=== PATIENT | female | born 1995 | race Caucasian/White ===

== ENCOUNTER 2021-12-01 10:49 | Emergency (ER) | payer OTHER ==
[~2021-12-01] VITALS: Ht 154.9 cm; Wt 55.8 kg
[2021-12-01 10:54] VITALS: BP 117/62
--- NOTE | 2021-12-01 10:59 | NUR ---
pt ambulated to bed 9
--- NOTE | 2021-12-01 11:36 | NUR ---
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 BLEEDING CONTROLLED 6/10 PAIN. PER PT UTD WTH RABIES, UNKNOWN LAST TDAP NKA PMH: ALOPECIA
--- NOTE | 2021-12-01 11:40 | NUR ---
PT AMBULATED TO BATHROOM
[2021-12-01] MEDS ORDERED: LIDOCAINE MPF 1% 10 MG/ML VIAL INJ ONE (11:55)
--- NOTE | 2021-12-01 12:10 | NUR ---
PTS WOUND WAS CLEANED WITH SALINE/ BETADINE SOLUTION USING 4X4 GAUZE.
[2021-12-01] MEDS ORDERED: IBUP-1842 PO (13:03)
[2021-12-01] MEDS ORDERED: AMOX1TAB8 PO (13:03)
[2021-12-01 13:10] VITALS: BP 117/62
--- NOTE | 2021-12-01 13:11 | NUR ---
Patient discharged with v/s stable. Written and verbal after care instructions about animal bite and lac care given and explained. Patient alert, oriented and verbalized understanding of instructions. Ambulatory with steady gait. All questions addressed prior to discharge. ID band removed. Patient advised to follow up with PMD. Rx of amox-clav [id number] and motrin given. Patient educated on indication of medication including possible reaction and side effects. Opportunity to ask questions provided and answered.
== END 2021-12-01 13:10 | disposition home or self-care (01) ==
LOC: MED 10:49
DX: S01.21XA Laceration without foreign body of nose, initial encounter (principal); Z79.1 Long term (current) use of non-steroidal anti-inflammatories (NSAID); Z79.2 Long term (current) use of antibiotics; W54.0XXA Bitten by dog, initial encounter; Y93.89 Activity, other specified; Y92.89 Other specified places as the place of occurrence of the external cause; Y99.0 Civilian activity done for income or pay
CPT/HCPCS: 12001; 90471; 90715; 99283; J2001